=== PATIENT | female | born 1960 | race African-American/Black ===

== ENCOUNTER 2018-01-20 16:00 | Emergency (ER) | payer OTHER ==
[2018-01-20] MEDS ORDERED: cloNIDine HCl 0.1 MG TAB ONE (16:24)
[2018-01-20] MEDS ORDERED: NA CHLORIDE 0.9% 1,000 ML ONE (16:24)
[2018-01-20 16:28] LABS: Absolute Lymphocytes (CBC) 1.7 K/uL (0.7-4.9); Absolute Monocytes 0.7 K/uL (0.1-1.3); Absolute Neutrophil 4.2 K/uL (1.8-8.0); Basophils % 0.8 % (0-1.3); Eosinophils % 2.1 % (0-4.4); Hematocrit 38.9 % (36.0-45.0); Lymphocytes % 25.4 % (15.3-44.8); MCH 30.4 pg (27.0-35.0); MCV 90.9 fL (80-100); MPV 8.6 fL (7.6-11.3); Monocytes % 9.8 % (3.3-12.3); RBC Red Blood Cell Count 4.28 M/uL (3.86-4.86)
[2018-01-20 16:33] LABS: Protime INR 1.42
[2018-01-20 16:41] LABS: Potassium 3.9 mEq/L (3.6-5.0)
[2018-01-20 16:48] LABS: Albumin 3.8 g/dL (3.2-5.5); Bilirubin Direct 0.1 mg/dL (0-0.2); Bilirubin Total 0.7 mg/dL (0.3-1.2); Protein, Total 8.6 g/dL (6.0-8.3)
[2018-01-20 16:50] LABS: CKMB Creatine Kinase MB 1.3 ng/ml (0.3-4.0)
[2018-01-20 16:53] LABS: Magnesium 1.5 mg/dL (1.8-2.5)
[2018-01-20 16:57] LABS: Urine Blood NEGATIVE (NEG); Urine Glucose NEGATIVE (NEG); Urine Protein NEGATIVE (NEG); Urine Specific Gravity 1.015 (1.005-1.030); Urine pH 5.5 (5.0-7.0)
[2018-01-20] MEDS ORDERED: FUROSEMIDE 20 MG/ 2ML VIAL ONE (17:07)
[2018-01-20] MEDS ORDERED: Magnesium Sulfate 2gm IVPB 2 G/50 ML BAG IV ONE (17:07)
--- NOTE | 2018-01-20 17:16 | RAD REPORT ---
EXAM DESCRIPTION: RAD - Chest Single View - 01/20/2018 4:53 pm CLINICAL HISTORY: Chest pain. COMPARISON: 09/13/2014 FINDINGS: Portable technique limits examination quality. The lungs are grossly clear. Mild to moderate cardiomegaly. No displaced fractures. IMPRESSION: Mild to moderate cardiomegaly.
--- NOTE | 2018-01-20 18:19 | ER ---
Nurse's Notes [facility] Name: Rhonda Figueroa Age: 57 yrs Sex: Female : 1960 Arrival Date: 01/20/2018 Time: 16:03 Bed 7 Private MD: Charlie Abdalla E Diagnosis: Essential (primary) hypertension;Hypomagnesemia Presentation: 01/20 16:04 Presenting complaint: Patient states: I have been out of a couple of my BP meds for 2 la1 days and I think my BP is running high. Transition of care: patient was not received from another setting of care. Onset of symptoms was January 20, 2018. Initial Sepsis Screen: Does the patient meet any 2 criteria? No. Patient's initial sepsis screen is negative. Does the patient have a suspected source of infection? No. Patient's initial sepsis screen is negative. Care prior to arrival: None. 16:04 Method Of Arrival: Ambulatory la1 16:04 Acuity: SHANTEL 3 la1 Historical: - Allergies: 16:05 No Known Allergies; la1 - Home Meds: 16:29 carvedilol oral oral [Active]; Lisinopril Oral [Active]; Warfarin Oral [Active]; ae1 doxazosin oral oral [Active]; Hydralazine Oral [Active]; - PMHx: 16:05 Hypertension; cardiomegaly; la1 - Immunization history:: Adult Immunizations up to date. - Social history:: Smoking status: Patient uses tobacco products, smokes one-half pack cigarettes per day. Screenin:30 Abuse screen: Denies threats or abuse. Denies injuries from another. Nutritional hb screening: No deficits noted. Tuberculosis screening: No symptoms or risk factors identified. Fall Risk None identified. Assessment: 16:31 General: Appears in no apparent distress. Behavior is calm, cooperative. Pain: Denies hb pain. Neuro: Level of Consciousness is awake, alert, obeys commands, Oriented to person, place, time, situation. Cardiovascular: Capillary refill < 3 seconds Patient's skin is warm and dry. Cardiovascular: Heart tones S1 S2 present. Respiratory: Airway is patent Trachea midline Respiratory effort is even, unlabored, Respiratory pattern is regular, symmetrical, Breath sounds are clear bilaterally. GI: No signs and/or symptoms were reported involving the gastrointestinal system. : No signs and/or symptoms were reported regarding the genitourinary system. EENT: No signs and/or symptoms were reported regarding the EENT system. Derm: No signs and/or symptoms reported regarding the dermatologic system. Skin is intact, is healthy with good turgor, Skin is pink, warm \T\ dry. Musculoskeletal: No signs and/or symptoms reported regarding the musculoskeletal system. 17:30 Reassessment: Patient appears in no apparent distress at this time. Patient and/or hb family updated on plan of care and expected duration. Pain level reassessed. Patient is alert, oriented x 3, equal unlabored respirations, skin warm/dry/pink. Patient denies pain at this time. 18:29 Reassessment: Patient appears in no apparent distress at this time. Patient and/or hb family updated on plan of care and expected duration. Pain level reassessed. Patient is alert, oriented x 3, equal unlabored respirations, skin warm/dry/pink. Patient denies pain at this time. Patient states feeling better. Patient states symptoms have improved. Vital Signs: 16:05 BP 179 / 124; Pulse 56; Resp 19; Temp 98.2; Pulse Ox 97% on R/A; Weight 54.43 kg; la1 Height 5 ft. 10 in. (177.80 cm); 17:00 BP 129 / 112; Pulse 57; Resp 17; Pulse Ox 99% on R/A; hb 17:23 BP 166 / 81; Pulse 56; Resp 16; Pulse Ox 100% on R/A; hb 17:51 BP 143 / 85; Pulse 54; Resp 15; Pulse Ox 100% on R/A; Pain 0/10; hb 16:05 Body Mass Index 17.22 (54.43 kg, 177.80 cm) la1 ED Course: 16:03 Patient arrived in ED. mr 16:03 Charlie Abdalla MD is Private Physician. mr 16:04 Triage completed. la1 16:05 Arm band placed on left wrist. la1 16:14 [facility]. snw 16:14 Herber Dowell MD is Attending Physician. snw 16:26 Inserted saline lock: 22 gauge in left antecubital area, using aseptic technique. hb ,using aseptic technique. by Sarmad Blood collected. 16:30 Patient has correct armband on for positive identification. Placed in gown. Bed in low hb position. Call light in reach. Side rails up X 1. 16:51 X-ray completed. Portable x-ray completed in exam room. Patient tolerated procedure kp1 well. 16:54 XRAY Chest (1 view) In Process Unspecified. EDMS 17:01 Kathrin Dennis, RN is Primary Nurse. hb 18:18 Charlie Abdalla MD is Referral Physician. snw 18:29 No provider procedures requiring assistance completed. IV discontinued, intact, hb bleeding controlled, No redness/swelling at site. Pressure dressing applied. Administered Medications: 16:29 Drug: NS 0.9% 1000 ml Route: IV; Rate: 75 ml/hr; Site: left antecubital; hb 18:15 Follow up: Response: No adverse reaction; IV Status: Completed infusion hb 16:30 Drug: cloNIDine 0.2 mg Route: PO; hb 17:30 Follow up: Response: No adverse reaction; Blood pressure is lowered hb 17:22 Drug: Magnesium Sulfate 2 grams Route: IVPB; Infused Over: 2 hrs; Site: left hb antecubital; 18:00 Follow up: Response: No adverse reaction; IV Status: Completed infusion hb 17:22 Drug: LaSIX 20 mg Route: PO; hb 18:00 Follow up: Response: No adverse reaction hb Outcome: 18:18 Discharge ordered by . snw 18:29 Discharged to home ambulatory, with family. hb 18:29 Condition: stable 18:29 Discharge instructions given to patient, Instructed on discharge instructions, follow up and referral plans. medication usage, Demonstrated understanding of instructions, follow-up care, medications. 18:31 Patient left the ED. hb Signatures: Dispatcher [employer] EDHI Milagros Nelson, GROUND SUPPORT EQUIPMENT FITTER-C GROUND SUPPORT EQUIPMENT FITTER-Csnw Kymberly Glass Lee, RN RN la1 Kathrin Dennis, RN RN Gabino Echeverria, DLILAN RN forest1 Anupama Keene 1
--- NOTE | 2018-01-20 18:19 | EDPHYS ---
Physician Documentation [facility] Name: Rhonda Figueroa Age: 57 yrs Sex: Female : 1960 Arrival Date: 01/20/2018 Time: 16:03 Bed 7 Private MD: Charlie Abdalla E ED Physician Herber Dowell HPI: 01/20 16:42 This 57 yrs old Black Female presents to ER via Ambulatory with complaints of High snw Blood Pressure. 16:42 The patient has elevated blood pressure and discovered this at a physician's office, snw called out some of her regular HTN meds but the pharmacy did not have them ready until today. Onset: The symptoms/episode began/occurred gradually. Modifying factors: The symptoms are aggravated by lack of HTN medications. Severity of symptoms: At its worst the blood pressure was 180 mm Hg. It is unknown whether or not the patient has had similar symptoms in the past. The patient has been recently seen by a physician: the patient's primary care provider, Dr. Abdalla. Historical: - Allergies: 16:05 No Known Allergies; la1 - Home Meds: 16:29 carvedilol oral oral [Active]; Lisinopril Oral [Active]; Warfarin Oral [Active]; ae1 doxazosin oral oral [Active]; Hydralazine Oral [Active]; - PMHx: 16:05 Hypertension; cardiomegaly; la1 - Immunization history:: Adult Immunizations up to date. - Social history:: Smoking status: Patient uses tobacco products, smokes one-half pack cigarettes per day. ROS: 16:41 Constitutional: Negative for fever, chills, and weight loss, Eyes: Negative for injury, snw pain, redness, and discharge, ENT: Negative for injury, pain, and discharge, Neck: Negative for injury, pain, and swelling, Cardiovascular: Negative for chest pain, palpitations, and edema, Respiratory: Negative for shortness of breath, cough, wheezing, and pleuritic chest pain, Abdomen/GI: Negative for abdominal pain, nausea, vomiting, diarrhea, and constipation, Back: Negative for injury and pain, : Negative for injury, bleeding, discharge, and swelling, MS/Extremity: Negative for injury and deformity, Skin: Negative for injury, rash, and discoloration, Neuro: Negative for headache, weakness, numbness, tingling, and seizure, Psych: Negative for depression, anxiety, suicide ideation, homicidal ideation, and hallucinations. Exam: 16:41 Constitutional: This is a well developed, well nourished patient who is awake, alert, snw and in no acute distress. Head/Face: Normocephalic, atraumatic. Eyes: Pupils equal round and reactive to light, extra-ocular motions intact. Lids and lashes normal. Conjunctiva and sclera are non-icteric and not injected. Cornea within normal limits. Periorbital areas with no swelling, redness, or edema. ENT: Nares patent. No nasal discharge, no septal abnormalities noted. Tympanic membranes are normal and external auditory canals are clear. Oropharynx with no redness, swelling, or masses, exudates, or evidence of obstruction, uvula midline. Mucous membranes moist. Neck: Trachea midline, no thyromegaly or masses palpated, and no cervical lymphadenopathy. Supple, full range of motion without nuchal rigidity, or vertebral point tenderness. No Meningismus. Chest/axilla: Normal chest wall appearance and motion. Nontender with no deformity. No lesions are appreciated. Cardiovascular: Regular rate and rhythm with a normal S1 and S2. No gallops, murmurs, or rubs. Normal PMI, no JVD. No pulse deficits. Respiratory: Lungs have equal breath sounds bilaterally, clear to auscultation and percussion. No rales, rhonchi or wheezes noted. No increased work of breathing, no retractions or nasal flaring. Abdomen/GI: Soft, non-tender, with normal bowel sounds. No distension or tympany. No guarding or rebound. No evidence of tenderness throughout. Back: No spinal tenderness. No costovertebral tenderness. Full range of motion. Skin: Warm, dry with normal turgor. Normal color with no rashes, no lesions, and no evidence of cellulitis. MS/ Extremity: Pulses equal, no cyanosis. Neurovascular intact. Full, normal range of motion. Neuro: Awake and alert, GCS 15, oriented to person, place, time, and situation. Cranial nerves II-XII grossly intact. Motor strength 5/5 in all extremities. Sensory grossly intact. Cerebellar exam normal. Normal gait. Vital Signs: 16:05 BP 179 / 124; Pulse 56; Resp 19; Temp 98.2; Pulse Ox 97% on R/A; Weight 54.43 kg; la1 Height 5 ft. 10 in. (177.80 cm); 17:00 BP 129 / 112; Pulse 57; Resp 17; Pulse Ox 99% on R/A; hb 17:23 BP 166 / 81; Pulse 56; Resp 16; Pulse Ox 100% on R/A; hb 17:51 BP 143 / 85; Pulse 54; Resp 15; Pulse Ox 100% on R/A; Pain 0/10; hb 16:05 Body Mass Index 17.22 (54.43 kg, 177.80 cm) la1 MDM: 16:17 Patient medically screened. snw 18:19 Data reviewed: vital signs, nurses notes. Data interpreted: Pulse oximetry: on room air snw is 100 %. Interpretation: normal. Counseling: I had a detailed discussion with the patient and/or guardian regarding: the historical points, exam findings, and any diagnostic results supporting the discharge/admit diagnosis, the presence of at least one elevated blood pressure reading (>120/80) during this emergency department visit, the need for outpatient follow up, for definitive care, to return to the emergency department if symptoms worsen or persist or if there are any questions or concerns that arise at home. Special discussion: I have referred the patient to see his PCP for further evaluation of high blood pressure. Based on the history and exam findings, there is no indication for further emergent testing or inpatient evaluation. I discussed with the patient/guardian the need to see the primary care provider for further evaluation of the symptoms. 01/20 16:15 Order name: Basic Metabolic Panel; Complete Time: 16:54 snw 01/20 16:15 Order name: BNP; Complete Time: 17:03 snw 01/20 16:15 Order name: CBC with Diff; Complete Time: 16:30 snw 01/20 16:15 Order name: Ckmb; Complete Time: 16:54 snw 01/20 16:15 Order name: CPK; Complete Time: 16:54 snw 01/20 16:15 Order name: LFT's; Complete Time: 16:54 snw 01/20 16:15 Order name: Magnesium; Complete Time: 16:54 snw 01/20 16:15 Order name: PT-INR; Complete Time: 16:37 snw 01/20 16:15 Order name: Ptt, Activated; Complete Time: 16:37 snw 01/20 16:15 Order name: Troponin (emerg Dept Use Only); Complete Time: 16:48 snw 01/20 16:15 Order name: XRAY Chest (1 view); Complete Time: 17:17 snw 01/20 16:31 Order name: Urine Dipstick--Ancillary (enter results); Complete Time: 17:03 eb 01/20 16:15 Order name: EKG; Complete Time: 16:16 snw 01/20 16:15 Order name: Cardiac monitoring; Complete Time: 16:30 snw 01/20 16:15 Order name: EKG - Nurse/Tech; Complete Time: 16:30 snw 01/20 16:15 Order name: IV Saline Lock; Complete Time: 16:30 snw 01/20 16:15 Order name: Labs collected and sent; Complete Time: 16:30 snw 01/20 16:15 Order name: O2 Per Protocol; Complete Time: 16:30 snw 01/20 16:15 Order name: O2 Sat Monitoring; Complete Time: 16:30 snw 01/20 16:15 Order name: Urine Dipstick-Ancillary (obtain specimen); Complete Time: 16:30 snw 01/20 16:53 Order name: Recheck Vital Signs; Complete Time: 17:02 snw Administered Medications: 16:29 Drug: NS 0.9% 1000 ml Route: IV; Rate: 75 ml/hr; Site: left antecubital; hb 18:15 Follow up: Response: No adverse reaction; IV Status: Completed infusion hb 16:30 Drug: cloNIDine 0.2 mg Route: PO; hb 17:30 Follow up: Response: No adverse reaction; Blood pressure is lowered hb 17:22 Drug: Magnesium Sulfate 2 grams Route: IVPB; Infused Over: 2 hrs; Site: left hb antecubital; 18:00 Follow up: Response: No adverse reaction; IV Status: Completed infusion hb 17:22 Drug: LaSIX 20 mg Route: PO; hb 18:00 Follow up: Response: No adverse reaction hb Disposition: 01/20/18 18:18 Discharged to Home. Impression: Essential (primary) hypertension, Hypomagnesemia. - Condition is Stable. - Discharge Instructions: Hypertension, Hypomagnesemia, DASH Eating Plan, Managing Your High Blood Pressure. - Medication Reconciliation Form, Thank You Letter, Antibiotic Education, Prescription Opioid Use form. - Follow up: Charlie Abdalla MD; When: 5 - 6 days; Reason: Recheck today's complaints, Continuance of care, Re-evaluation by your physician. Follow up: Emergency Department; When: As needed; Reason: Worsening of condition. Addendum: 01/22/2018 09:07 Co-signature as Attending Physician, Herber Dowell MD I agree with the assessment and c shelby plan of care. Signatures: Dispatcher [employer] EDWV Herber Dowell MD MD cha Therrien, Shelly, ROVING WEIGHT GAUGER-C ROVING WEIGHT GAUGER-Csnw Zak Iyer RN RN la1 Kathrin Dennis, RN RN Gabino Echeverria RN RN ae1
[2018-01-20 18:36] VITALS: TEMP 98.2
[2018-01-20 18:38] VITALS: O2SAT 100
[2018-01-20 18:40] VITALS: BP 143/85
--- NOTE | 2018-01-21 16:09 | EKG ---
Test Date: 2018-01-20 Test Time: 16:34:16 Digital Marketing Specialist: CATARINO MEASUREMENT RESULTS: Intervals: Rate: 58 [place]: QRSD: 94 QT: 436 QTc: 428 [place]: P: [place]: QRS: 79 T: 220 INTERPRETIVE STATEMENTS: Atrial fibrillation with slow ventricular response Incomplete right bundle branch block Voltage criteria for left ventricular hypertrophy ST & Marked T wave abnormality, consider inferolateral ischemia Abnormal ECG Compared to ECG 08/26/2014 07:49:28 Incomplete right bundle-branch block now present T-wave abnormality now present Possible ischemia now present Myocardial infarct finding no longer present Prolonged QT interval no longer present Electronically Signed On 01-21-18 16:09:07 CDT by Chidi Galvin
== END 2018-01-20 18:31 | disposition home or self-care (01) ==
LOC: ER 16:00
DX: I10 Essential (primary) hypertension (principal); I51.7 Cardiomegaly; F17.210 Nicotine dependence, cigarettes, uncomplicated; Z79.01 Long term (current) use of anticoagulants
CPT/HCPCS: 36415; 71045; 80048; 80076; 81003; 82550; 82553; 83735; 83880; 84484; 85025; 85610; 85730; 93005; 96361; 96365; 99284; J1940; J3475; J7030

== ENCOUNTER 2022-03-17 11:08 | Emergency (ER) | payer OTHER ==
[2022-03-17] MEDS ORDERED: IBUPROFEN 200 MG TAB PO ONE (12:14)
--- NOTE | 2022-03-17 12:39 | RAD REPORT ---
EXAM DESCRIPTION: RAD - Elbow Right 3 View - 03/17/2022 12:28 pm CLINICAL HISTORY: PAIN COMPARISON: No comparisons FINDINGS/IMPRESSION: No acute fracture. No malalignment. No significant focal degenerative changes. Small soft tissue calcifications in the dorsal aspect of the elbow may be vascular. Opaque foreign yancy dy.
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
[2022-03-17 13:47] VITALS: BP 156/79; TEMP 98.8; O2SAT 100
== END 2022-03-17 13:34 | disposition home or self-care (01) ==
LOC: ER 11:08
DX: M70.21 Olecranon bursitis, right elbow (principal); I10 Essential (primary) hypertension; F17.210 Nicotine dependence, cigarettes, uncomplicated
CPT/HCPCS: 99283

== ENCOUNTER 2024-01-27 14:11 | Observation (INO) | payer OTHER ==
--- OUTSIDE RECORDS SUMMARY | 2024-01-27 14:14 | XMS REPORT | Continuity of Care Document ---
Author Name Unknown Address [address] th[address] Address [address] [place] [address] 1 [address] [place] [address] Care Team Providers Care Habitat Management Coordinator Name Role Phone Unavailable Unavailable Unavailable Payers Payer Name Policy Type Policy Number Effective Date Expirati on Date Source [employer] [facility] (MEDICARE REPLACEMENT HMO) [id number] 00:00:00 Encounters Start Date/Time End Date/Time Encounter Type Admission Type Attending [facility] Facility Care Department Encounter ID Source 2022-06-04 00:00:00 2022-06-04 00:00:00 Outpatient [facility] DMG [id number] [facility] 2022-04-28 00:00:00 2022-04-28 00:00:00 Outpatient DMG DMG [id number] [facility] 2022-04-27 00:00:00 2022-04-27 00:00:00 Outpatient DMG DMG [id number] [facility]
--- NOTE | 2024-01-27 14:57 | RAD REPORT ---
EXAM DESCRIPTION: RAD - Chest Single View - 01/27/2024 2:51 pm CLINICAL HISTORY: CHEST PAIN COMPARISON: Chest Single View dated 01/20/2018; CHEST SINGLE VIEW dated 08/26/2014; CHEST SINGLE VIEW dated 08/25/2014; CHEST SINGLE VIEW dated 08/13/2011 FINDINGS: Lines: None. Lungs: No evidence of edema or pneumonia. Pleural: No significant pleural effusions or pneumothorax. Cardiac: Similar moderate cardiomegaly. Mediastinum: Within normal limits. Bones: No acute fractures. Other: None IMPRESSION: No acute cardiopulmonary disease.
[2024-01-27 15:05] LABS: Absolute Eosinophils 0.1 K/uL (0-0.5); Absolute Lymphocytes (CBC) 2.2 K/uL (0.7-4.9); Absolute Monocytes 0.6 K/uL (0.1-1.3); Absolute Neutrophil 3.9 K/uL (1.8-8.0); Basophils % 0.7 % (0-1.3); Eosinophils % 1.8 % (0-4.4); Hematocrit 35.8 % (36.0-45.0); Hemoglobin 11.8 g/dL (12.0-15.0); Lymphocytes % 31.7 % (15.3-44.8); MCH 30.7 pg (27.0-35.0); MCHC 32.9 g/dL (32.0-36.0); MCV 93.2 fL (80-100); MPV 9.2 fL (7.6-11.3); Monocytes % 9.2 % (3.3-12.3); Neutrophils % 56.6 % (41.7-73.7); Nucleated Red Blood Cells % 0.1 % (0-0); Platelets 229 thou/uL (152-406); RBC Red Blood Cell Count 3.84 M/uL (3.86-4.86); Red Cell Distribution Width 14.3 % (12.1-15.2)
[2024-01-27 15:15] LABS: PT Prothrombin Time 23.5 SECONDS (9.5-12.5); PTT, Activated Partial Thromb 45.5 SECONDS (24.3-36.9); Protime INR 2.19
[2024-01-27 15:24] LABS: Albumin 3.7 g/dL (3.4-5.0); Albumin/Globulin Ratio 0.8 (1.1-1.8); Anion Gap 9.5 mEq/L (5.0-15.0); Bilirubin Direct 0.2 mg/dL (0-0.2); Bilirubin Indirect, Calculated 0.5 mg/dL (0.2-0.8); Bilirubin Total 0.7 mg/dL (0.2-1.0); Globulin 4.6 g/dL (2.3-3.5); Potassium 3.5 mEq/L (3.5-5.1); Protein, Total 8.3 g/dL (6.4-8.2); Troponin High Sensitivity 40.3 pg/mL (<58.9)
[2024-01-27 15:28] LABS: Magnesium 0.8 mg/dL (1.6-2.4)
--- NOTE | 2024-01-27 15:28 | RAD REPORT ---
EXAM DESCRIPTION: CT - Head Brain Wo Cont - 01/27/2024 3:07 pm CLINICAL HISTORY: DIZZINESS COMPARISON: HEAD BRAIN W O CONTRAST dated 08/28/2014 TECHNIQUE: All CT scans are performed using dose optimization technique as appropriate and may inclu de automated exposure control or mA/KV adjustment according to patient size. FINDINGS: No intracranial hemorrhage, hydrocephalus or extra-axial fluid collection.No areas of brai n edema or evidence of midline shift. The paranasal sinuses and mastoids are clear. The calvarium is intact. IMPRESSION: No acute intracranial abnormality.
[2024-01-27] MEDS ORDERED: Magnesium Sulfate 2gm IVPB 2 G/50 ML BAG IV ONE (15:41)
[2024-01-27] MEDS ORDERED: NA CHLORIDE 0.9% 1,000 ML ONE (15:41)
[2024-01-27 16:11] LABS: Specific Gravity 1.006 (1.005-1.030); Sqamous Epithelial <5 /HPF (None Seen); Urine Bacteria None Seen /HPF (<20); Urine Bilirubin NEGATIVE (Negative); Urine Blood Negative (Negative); Urine Clarity Turbid (Clear); Urine Color Light-Yellow (Yellow); Urine Culture Reflex Order NOT NEEDED; Urine Glucose NEGATIVE (Negative); Urine Ketones NEGATIVE (Negative); Urine Microscopic Reflex YN ORDER UMIC; Urine Nitrite NEGATIVE (Negative); Urine Protein NEGATIVE (Negative); Urine RBC <5 /HPF (None Seen); Urine Urobilinogen Normal (Normal); Urine WBC <5 /HPF (<5); Urine pH 5.5 (5.0-7.0)
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
[2024-01-27] MEDS ORDERED: HALOPERIDOL LACT 5 MG/ML INJ IM PRN (16:49)
[2024-01-27] MEDS ORDERED: FLUMAZENIL 0.1 MG/ML (5 mL VIAL) IV PRN (16:49)
[2024-01-27] MEDS ORDERED: LORazepam 2 MG/ML VIAL IV PRN (16:51)
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
[2024-01-27] MEDS: chlordiazePOXIDE HCl 25 MG CAP PO SCH (18:00)
[2024-01-27] MEDS ORDERED: ACETAMINOPHEN 500 MG TAB PO PRN (19:09)
[2024-01-27] MEDS: MAGNESIUM 50% 3 GM in NA CHLORIDE 0.9% 100 ML IV ONE (19:09)
[2024-01-27] MEDS: NA CHLORIDE 0.9% 1,000 ML IV SCH (19:33)
[2024-01-27] MEDS: FOLIC ACID 1 MG TABLET PO SCH (19:44)
[2024-01-27] MEDS: THIAMINE HCL 100 MG TABLET PO SCH (19:44)
[2024-01-27] MEDS: APIXABAN 5 MG TABLET PO SCH (19:44)
[2024-01-27] MEDS: MAGNESIUM SULFATE 1 gm IVPB 1 GM/100 ML BAG IV ONE (21:01)
[2024-01-27] MEDS: carvediloL 6.25 MG TAB PO SCH (21:16)
[2024-01-27] MEDS: lisinopriL 20 MG TAB PO SCH (21:27)
[2024-01-27] MEDS: AMLODIPINE 5 MG TAB PO SCH (21:27)
[2024-01-27 22:50] VITALS: BMI 18.6
[2024-01-28 03:45] LABS: Hematocrit 32.9 % (36.0-45.0); Hemoglobin 10.8 g/dL (12.0-15.0); MCH 30.7 pg (27.0-35.0); MCHC 32.9 g/dL (32.0-36.0); MCV 93.4 fL (80-100); Platelets 200 thou/uL (152-406); RBC Red Blood Cell Count 3.52 M/uL (3.86-4.86)
[2024-01-28 03:46] LABS: Absolute Basophils 0.1 K/uL (0-0.5); Absolute Eosinophils 0.2 K/uL (0-0.5); Absolute Lymphocytes (CBC) 2.2 K/uL (0.7-4.9); Absolute Monocytes 0.5 K/uL (0.1-1.3); Absolute Neutrophil 3.5 K/uL (1.8-8.0); Basophils % 1.1 % (0-1.3); Eosinophils % 2.5 % (0-4.4); Lymphocytes % 33.6 % (15.3-44.8); MPV 9.1 fL (7.6-11.3); Monocytes % 8.2 % (3.3-12.3); Neutrophils % 54.6 % (41.7-73.7); Red Cell Distribution Width 13.8 % (12.1-15.2)
[2024-01-28 04:02] LABS: Albumin/Globulin Ratio 0.7 (1.1-1.8); Anion Gap 7.2 mEq/L (5.0-15.0); Bilirubin Total 0.4 mg/dL (0.2-1.0); Globulin 4.3 g/dL (2.3-3.5); Magnesium 1.9 mg/dL (1.6-2.4); Phosphorus 2.2 mg/dL (2.5-4.9); Potassium 3.2 mEq/L (3.5-5.1); Protein, Total 7.3 g/dL (6.4-8.2)
[2024-01-28] MEDS: PANTOPRAZOLE 40MG TABLET PO SCH (05:57)
--- NOTE | 2024-01-28 06:05 | P.PN ---
Subjective Date of Service: 01/28/24 Chief Complaint: Symptomatic bradycardia Sinus bradycardia heart rate 52, blood pressure 141/60 No reported chest pain, patient report shortness of breath on arrival to the emergency room, patient refused COVID and flu swabs - Physical Exam General: Alert, In no apparent distress, Oriented x3, Other (thin) HEENT: Atraumatic, Normocephalic Neck: JVD not distended Respiratory: Clear to auscultation bilaterally, Normal air movement Cardiovascular: Irregular heart rate/rhythm (Bradycardic) Capillary refill: <2 Seconds Gastrointestinal: Normal bowel sounds, Soft and benign Musculoskeletal: No clubbing, No swelling Integumentary: No breakdown, No significant lesion Neurological: Normal speech, Normal strength at 5/5 x4 extr <Deepthi Elise - Last Filed: 01/28/24 06:40> Date of Service: 01/28/24 <Alissa Foster - Last Filed: 01/29/24 15:44> Review of Systems per HPI <Deepthi Elise - Last Filed: 01/28/24 06:40> Physical Examination - Vital Signs Temperature: 97.1 F Blood Pressure: 141/63 Pulse: 52 Respirations: 16 Pulse Ox (%): 91 - Studies Laboratory Data (last 24 hrs) 01/27/24 01/27/24 01/27/24 14:45 14:45 14:45 WBC 6.80 Hgb 11.8 L Hct 35.8 L Plt Count 229 PT 23.5 H INR 2.19 APTT 45.5 H Sodium 136 Potassium 3.5 BUN 18 Creatinine 1.12 H Glucose 100 Magnesium 0.8 L* Total Bilirubin 0.7 AST 17 ALT 20 Alkaline Phosphatase 88 <Deepthi Elise - Last Filed: 01/28/24 06:40> Assessment And Plan - Plan Assessment plan Symptomatic bradycardia Atrial fibrillation heart rate 43 Dizziness, Cardiology consult, telemetry, Hold beta-trae, She denies history of heart failure, she reports taking Coreg 6.25 daily, previously she saw Dr. Disla, she has not seen a lpn private duty since he passed R evaluation Signs: BP 173 / 107; Pulse 40; Resp 15; Temp 97.6(O); Pulse Ox 100% on R/A; Weight 58.97 kg; Height 5 ft. 10 in. ; Pain 0/10; EKG Rate is 46 beats/min. Rhythm is irregularly irregular, A fib. QRS interval is normal at78 msec. QT interval is normal at 512 msec. Clinical impression: Atrial Fibrillation Patient refuse COVID 19, Flu A/B and RSV swabs. Dr. Kwong notified. CT of the head no acute abnormality Hypomagnesia Replace electrolytes, trend 0.8, replaced in the ER, On admission, replace per electrolyte protocol Hypokalemia trend electrolytes replace History of tobacco use History of alcohol use CIWA protocol, educate on cessation, as needed Ativan Educated on tobacco cessation Hypertension As needed antihypertensive, hold beta-trae due to bradycardia Full code Cardiac diet DVT resume home Eliquis Disposition Home independent prior Discharge Plan: Home - Code Status/Comfort Care Code Status: Full Code Critical Care: No Time Spent Managing PTS Care (In Minutes): 35 <Deepthi Elise - Last Filed: 01/28/24 06:40> Date of Service: 01/28/24 Patient was seen and examined. Events of the last 24 hours have been noted. Spoke with with AMALIA regarding patient's clinical picture after evaluating and examining the patient independently. patient's heart rate is stable. Patient doing well on telemetry. Bradyarrhythmia seems to have resolved lower currently waiting on Cardiology and echocardiogram to be completed. I performed a substantial part of the MDM during this patient's care today. I personally made or approved the documented management plan and acknowledge its risk of complications. I agree with the findings and documentation provided in the AMALIA's notes. <Alissa Foster - Last Filed: 01/29/24 15:44>
[2024-01-28] MEDS: POTASS/SODIUM PHOSPHATE 1 PKT POWD.PACK PO SCH (07:18)
[2024-01-28] MEDS: POTASSIUM CL SA 10 MEQ TAB PO ONE (09:12)
[2024-01-28] MEDS: MULTIVITAMIN TAB PO SCH (09:13)
[2024-01-29 04:37] VITALS: BP 179/84; TEMP 97.4
[2024-01-29 07:39] LABS: Anion Gap 8.7 mEq/L (5.0-15.0); Potassium 4.7 mEq/L (3.5-5.1)
--- NOTE | 2024-01-29 08:22 | P.PN ---
Subjective Date of Service: 01/29/24 Chief Complaint: Symptomatic bradycardia Subjective: No new changes (Pt states she has extreme fatigue.) <Milagros Mas - Last Filed: 01/29/24 08:17> Date of Service: 01/31/24 <Luis Sanchez - Last Filed: 01/31/24 22:25> Review of Systems 10-point ROS is otherwise unremarkable General: Malaise, As per HPI Neurological: Other (denies dizziness this am) <Milagros Mas - Last Filed: 01/29/24 08:17> Physical Examination - Vital Signs Temperature: 97.4 F Blood Pressure: 179/84 Pulse: 56 Respirations: 16 Pulse Ox (%): 94 - Physical Exam General: Alert, In no apparent distress, Oriented x3, Cooperative, Cachectic HEENT: Atraumatic, Normocephalic Neck: 2+ carotid pulse no bruit Respiratory: Normal air movement Cardiovascular: Rubs (bradycardic) Capillary refill: <2 Seconds Gastrointestinal: Normal bowel sounds Musculoskeletal: No clubbing, No swelling Integumentary: No rashes, No breakdown Neurological: Normal speech, Normal strength at 5/5 x4 extr Lymphatics: No axilla or inguinal lymphadenopathy External genitalia: Deferred Rectal: Deferred <Milagros Mas - Last Filed: 01/29/24 08:17> Assessment And Plan - Plan Assessment plan Symptomatic bradycardia Atrial fibrillation heart rate 43 Dizziness, Cardiology consult, telemetry, She denies history of heart failure, she reports taking Coreg 6.25 daily, previously she saw Dr. Disla, she has not seen a master in chancery since he passed R evaluation Signs: BP 173 / 107; Pulse 40; Resp 15; Temp 97.6(O); Pulse Ox 100% on R/A; Weight 58.97 kg; Height 5 ft. 10 in. ; Pain 0/10; EKG Rate is 46 beats/min. Rhythm is irregularly irregular, A fib. QRS interval is normal at78 msec. QT interval is normal at 512 msec. Clinical impression: Atrial Fibrillation Patient refuse COVID 19, Flu A/B and RSV swabs. Dr. Kwong notified. CT of the head no acute abnormality 01/29/24 Hold beta-trae, remains bradycardic this am Hypomagnesia Replace electrolytes, trend -resolved 0.8, replaced in the ER, On admission, replace per electrolyte protocol 01/29/24 hypomagnesemia resolved Hypokalemia trend electrolytes replace History of tobacco use History of alcohol use CIWA protocol, educate on cessation, as needed Ativan Educated on tobacco cessation Hypertension As needed antihypertensive, hold beta-trae due to bradycardia Full code Cardiac diet DVT resume home Eliquis <Milagros Mas - Last Filed: 01/29/24 08:17> - Plan Pt seen and examined. I agree with the note by the [employer]. Hold BB due to bradycardia. Will replete magnesium and continue smoking cessation <Luis Sanchez - Last Filed: 01/31/24 22:25>
[2024-01-29 09:42] VITALS: O2SAT 94
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
--- NOTE | 2024-01-29 12:18 | P.DS ---
Admission Date: 01/27/24 Discharge Date: 01/29/24 Reason for Admission: Symptomatic bradycardia Consultations: Dr. Eugene Brief History of Present Illness: 63-year-old male female with a past medical history of hypertension, atrial fibrillation, presents to the emergency room with dizziness, lightheaded. She reports symptoms worse bending down, standing up. She reports shortness of breath that started this morning. She denies history of heart failure, she reports taking Coreg 6.25 daily, previously she saw Dr. Disla, she has not seen a steel manager since he passed. She denies chest pain, abdominal pain, fever nausea vomiting diarrhea. Plan to admit for symptomatic bradycardia, hypomagnesia. cardiology to consult, ER evaluation Signs: BP 173 / 107; Pulse 40; Resp 15; Temp 97.6(O); Pulse Ox 100% on R/A; Weight 58.97 kg; Height 5 ft. 10 in. ; Pain 0/10; EKG Rate is 46 beats/min. Rhythm is irregularly irregular, A fib. QRS interval is normal at78 msec. QT interval is normal at 512 msec. Clinical impression: Atrial Fibrillation. Laboratory evaluation hypomagnesia 0.82 mg replaced in the emergency room. 1 L of normal saline Hospital Course: Ms. Figueroa did well over the course of her hospitalization. She was severely low in magnesium on arrival. Her electrolytes have been replaced. Dr. Eugene was in to see Ms. Figueroa. He recommends a 30-day event monitor and advised her to follow-up with the clinic to get that arranged. She will be discharged on decreased doses of her medications. Lisinopril 20 mg p.o. daily, Norvasc 5 mg p.o. daily, doxazosin 1 mg p.o. twice daily, and also lower dose of Coreg at 3.125 mg p.o. twice daily. Continue Eliquis. <Milagros Mas - Last Filed: 01/29/24 12:28> Admission Date: 01/27/24 Discharge Date: 01/29/24 Hospital Course: Pt comfort nd examined. I agree with the note by the REGISTERED NURSE MATERNAL CHILD. Pt was advised to take coreg 3.125mg po BID and wear event monitor. Pt need to follow up with Dr. Eugene within 1 week <Luis Sanchez - Last Filed: 01/29/24 12:33> Disposition: ROUTINE DISCHARGE Discharge Condition: GOOD Vital Signs/Physical Exam: Temp Pulse Resp BP Pulse Ox 97.4 F 56 16 179/84 H 94 01/29/24 08:21 01/29/24 08:21 01/29/24 08:21 01/29/24 08:21 01/29/24 08:21 General: Alert, In no apparent distress, Oriented x3 HEENT: Atraumatic, Normocephalic Neck: Supple Respiratory: Normal air movement Cardiovascular: No edema, Normal pulses, Other (bradycardic 40-50s), Rubs Capillary refill: <2 Seconds Gastrointestinal: Soft and benign Musculoskeletal: No clubbing, No swelling Integumentary: No rashes Neurological: Normal speech, Normal tone Lymphatics: No axilla or inguinal lymphadenopathy External genitalia: Deferred Rectal: Deferred Laboratory Data at Discharge: WBC 6.50 thou/uL (4.3-10.9) 01/28/24 03:29 Hgb 10.8 g/dL (12.0-15.0) L D 01/28/24 03:29 Hct 32.9 % (36.0-45.0) L 01/28/24 03:29 Plt Count 200 thou/uL (152-406) 01/28/24 03:29 PT 23.5 SECONDS (9.5-12.5) H 01/27/24 14:45 INR 2.19 01/27/24 14:45 APTT 45.5 SECONDS (24.3-36.9) H 01/27/24 14:45 Sodium 137 mEq/L (136-145) 01/29/24 06:03 Potassium 4.7 mEq/L (3.5-5.1) D 01/29/24 06:03 BUN 11 mg/dL (7-18) 01/29/24 06:03 Creatinine 0.96 mg/dL (0.55-1.02) 01/29/24 06:03 Glucose 90 mg/dL (74-106) 01/29/24 06:03 Phosphorus 3.0 mg/dL (2.5-4.9) 01/29/24 06:03 Magnesium 1.9 mg/dL (1.6-2.4) 01/28/24 03:29 Total Bilirubin 0.4 mg/dL (0.2-1.0) 01/28/24 03:29 AST 18 U/L (15-37) 01/28/24 03:29 ALT 18 U/L (13-56) 01/28/24 03:29 Alkaline Phosphatase 84 U/L (45-117) 01/28/24 03:29 <Mas,Milagros Cristian - Last Filed: 01/29/24 12:28> Vital Signs/Physical Exam: Temp Pulse Resp BP Pulse Ox 97.4 F 56 16 179/84 H 94 01/29/24 08:21 01/29/24 08:21 01/29/24 08:21 01/29/24 08:21 01/29/24 08:21 Laboratory Data at Discharge: WBC 6.50 thou/uL (4.3-10.9) 01/28/24 03:29 Hgb 10.8 g/dL (12.0-15.0) L D 01/28/24 03:29 Hct 32.9 % (36.0-45.0) L 01/28/24 03:29 Plt Count 200 thou/uL (152-406) 01/28/24 03:29 PT 23.5 SECONDS (9.5-12.5) H 01/27/24 14:45 INR 2.19 01/27/24 14:45 APTT 45.5 SECONDS (24.3-36.9) H 01/27/24 14:45 Sodium 137 mEq/L (136-145) 01/29/24 06:03 Potassium 4.7 mEq/L (3.5-5.1) D 01/29/24 06:03 BUN 11 mg/dL (7-18) 01/29/24 06:03 Creatinine 0.96 mg/dL (0.55-1.02) 01/29/24 06:03 Glucose 90 mg/dL (74-106) 01/29/24 06:03 Phosphorus 3.0 mg/dL (2.5-4.9) 01/29/24 06:03 Magnesium 1.9 mg/dL (1.6-2.4) 01/28/24 03:29 Total Bilirubin 0.4 mg/dL (0.2-1.0) 01/28/24 03:29 AST 18 U/L (15-37) 01/28/24 03:29 ALT 18 U/L (13-56) 01/28/24 03:29 Alkaline Phosphatase 84 U/L (45-117) 01/28/24 03:29 <Se Sanchezchunkaden Jovita - Last Filed: 01/29/24 12:33> Diet: AHA Activity: Ad yael <Milagros Mas - Last Filed: 01/29/24 12:28> <Luis Sanchez - Last Filed: 01/29/24 12:33> Home Medications: Amlodipine [Norvasc*] 10 mg PO DAILY 01/27/24 Meloxicam 15 mg PO DAILY 01/27/24 Omeprazole [Prilosec] 40 mg PO DAILY 01/27/24 lisinopriL [Prinivil*] 40 mg PO DAILY 01/27/24 Apixaban [Eliquis] 5 mg PO BID 30 Days #60 tab 01/29/24 carvediloL [Coreg] 3.125 mg PO BID 30 Days #60 tab 01/29/24 New Medications: carvediloL [Coreg] 3.125 mg PO BID 30 Days #60 tab Apixaban [Eliquis] 5 mg PO BID 30 Days #60 tab Physician Discharge Instructions: Ms. Figueroa did well over the course of her hospitalization. She was severely low in magnesium on arrival. Her electrolytes have been replaced. Dr. Eugene was in to see Ms. Figueroa. He recommends a 30-day event monitor and advised her to follow-up with the clinic to get that arranged. She will be discharged on decreased doses of her medications. Lisinopril 20 mg p.o. daily, Norvasc 5 mg p.o. daily, doxazosin 1 mg p.o. twice daily, and also lower dose of Coreg at 3.125 mg p.o. twice daily. Continue Eliquis. Okay to DC IV and DC home Follow-up with primary care provider in 1 to 2 weeks Follow-up with cardiology in 1 to 2-week Please call the inpatient unit for any questions or concerns regarding hospital stay Return to the ER for worsening symptoms Followup: Kaur Patterson DO [Primary Care Provider] - Sanya Eugene MD [ACTIVE - CAN ADMIT] -
--- NOTE | 2024-01-29 14:43 | EKG ---
Test Date: 2024-01-27 Test Time: 14:38:05 [employer] Frame Builder: BP MEASUREMENT RESULTS: Intervals: Rate: 46 [place]: QRSD: 78 QT: 512 QTc: 448 [place]: P: [place]: QRS: 104 T: 238 INTERPRETIVE STATEMENTS: Atrial fibrillation with slow ventricular response Minimal voltage criteria for LVH, may be normal variant Anterolateral infarct, age undetermined ST & T wave abnormality, consider inferior ischemia Abnormal ECG Compared to ECG 01/20/2018 16:34:16 Myocardial infarct finding now present ST (T wave) deviation now present Incomplete right bundle-branch block no longer present T-wave abnormality no longer present Possible ischemia still present Electronically Signed On 01-29-24 14:39:07 CDT by Luis Boykin
--- NOTE | 2024-01-31 13:09 | EKG ---
Test Date: 2024-01-29 Test Time: 10:46:26 Printing Technician: DEBORAH MEASUREMENT RESULTS: Intervals: Rate: 50 [place]: QRSD: 84 QT: 460 QTc: 419 [place]: P: [place]: QRS: 89 T: 254 INTERPRETIVE STATEMENTS: Atrial fibrillation with slow ventricular response Minimal voltage criteria for LVH, may be normal variant ST & T wave abnormality, consider lateral ischemia or digitalis effect Abnormal ECG Compared to ECG 01/27/2024 14:38:05 Myocardial infarct finding no longer present ST (T wave) deviation still present Possible ischemia still present Electronically Signed On 01-31-24 13:07:53 CDT by Luis Boykin
== END 2024-01-29 13:22 | disposition home or self-care (01) ==
LOC: ER 14:11 → ERHOLD 16:39 → 2ND 18:12
PROVIDERS: ADMIT Hospitalist; ATTEND Hospitalist
DX: I48.11 Longstanding persistent atrial fibrillation (principal); I10 Essential (primary) hypertension; R06.02 Shortness of breath; E83.42 Hypomagnesemia; E87.6 Hypokalemia; F17.210 Nicotine dependence, cigarettes, uncomplicated; R42 Dizziness and giddiness; Z79.01 Long term (current) use of anticoagulants
CPT/HCPCS: 93005 ×2; 85025 ×2; 81001; 80048 ×2; 36415 ×2; 83735 ×2; 84100 ×2; 85610; 80076; 85730; 84484; 80053; 70450; 71045; 96374; 99284; J3475 ×2; J7030 ×2; G0378 ×4

== ENCOUNTER 2024-09-14 11:30 | Observation (INO) | payer OTHER ==
--- OUTSIDE RECORDS SUMMARY | 2024-09-14 11:33 | XMS REPORT | Continuity of Care Document ---
Author Name Unknown Address [address] [facility] [address] th[address] Address [address] [place] [address] [address] [place] [address] Care Team Providers Care Monorail Car Operator Name Role Phone Unavailable Unavailable Unavailable Payers Payer Name Policy Type Policy Number Effective Date Expirati on Date Source [employer] [facility] (MEDICARE REPLACEMENT HMO) [id number] 00:00:00 Encounters Start Date/Time End Date/Time Encounter Type Admission Type Attending [facility] Facility Care Department Encounter ID Source 2022-06-04 00:00:00 2022-06-04 00:00:00 Outpatient [facility] [id number] [facility] 2022-04-28 00:00:00 2022-04-28 00:00:00 Outpatient DMG DMG [id number] [facility] 2022-04-27 00:00:00 2022-04-27 00:00:00 Outpatient DMG DMG [id number] [facility]
[2024-09-14 12:18] LABS: Absolute Eosinophils 0.1 K/uL (0-0.5); Absolute Lymphocytes (CBC) 1.5 K/uL (0.7-4.9); Absolute Monocytes 0.5 K/uL (0.1-1.3); Absolute Neutrophil 2.5 K/uL (1.8-8.0); Basophils % 0.8 % (0-1.3); Eosinophils % 2.7 % (0-4.4); Hematocrit 34.6 % (36.0-45.0); Hemoglobin 11.4 g/dL (12.0-15.0); Lymphocytes % 32.1 % (15.3-44.8); MCH 30.6 pg (27.0-35.0); MCV 92.8 fL (80-100); MPV 8.8 fL (7.6-11.3); Monocytes % 11.1 % (3.3-12.3); Neutrophils % 53.3 % (41.7-73.7); Platelets 202 thou/uL (152-406); RBC Red Blood Cell Count 3.72 M/uL (3.86-4.86); Red Cell Distribution Width 13.5 % (12.1-15.2)
[2024-09-14] MEDS ORDERED: NA CHLORIDE 0.9% 500 ML ONE (12:42)
[2024-09-14] MEDS ORDERED: Magnesium Sulfate 2gm IVPB 2 G/50 ML BAG IV ONE (12:42)
[2024-09-14 12:43] LABS: Albumin 3.6 g/dL (3.4-5.0); Albumin/Globulin Ratio 0.8 (1.1-1.8); Anion Gap 6.1 mEq/L (5.0-15.0); Bilirubin Direct 0.2 mg/dL (0-0.2); Bilirubin Indirect, Calculated 0.3 mg/dL (0.2-0.8); Bilirubin Total 0.5 mg/dL (0.2-1.0); Globulin 4.5 g/dL (2.3-3.5); Potassium 4.1 mEq/L (3.5-5.1); Protein, Total 8.1 g/dL (6.4-8.2)
--- NOTE | 2024-09-14 12:55 | RAD REPORT ---
EXAM: Chest Single View HISTORY: COUGH COMPARISON: 04/12/24 FINDINGS: LUNGS/PLEURA: The lungs are clear. No pleural effusions or pneumothorax. No pulmonary edema. MEDIASTINUM: The mediastinal silhouette is within normal limits. CARDIAC: Cardiomegaly. UPPER ABDOMEN: No significant abnormality. BONES: No acute fracture. LINES/TUBES/OTHER: N/A IMPRESSION: No evidence of acute cardiopulmonary disease.
[2024-09-14 13:16] LABS: Specific Gravity 1.007 (1.005-1.030); Sqamous Epithelial <5 /HPF (None Seen); Urine Bacteria <20 /HPF (<20); Urine Bilirubin NEGATIVE (Negative); Urine Blood Negative (Negative); Urine Clarity Clear (Clear); Urine Color Colorless (Yellow); Urine Culture Reflex Order NOT NEEDED; Urine Glucose NEGATIVE (Negative); Urine Ketones NEGATIVE (Negative); Urine Micro Reflex YN NO BILL MICROSCOPIC; Urine Nitrite NEGATIVE (Negative); Urine Protein NEGATIVE (Negative); Urine RBC <5 /HPF (None Seen); Urine Urobilinogen Normal (Normal); Urine WBC <5 /HPF (<5)
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
[2024-09-14 16:10] VITALS: BMI 18.9
[2024-09-14] MEDS: SUCRALFATE 1 GM TABLET PO SCH (16:58)
[2024-09-14] MEDS: HYDRALAZINE HCL 25 MG TABLET PO SCH (20:13)
[2024-09-14] MEDS: HYDRALAZINE HCL 20 MG/ML VIAL IV PRN (20:13)
[2024-09-14] MEDS: APIXABAN 5 MG TABLET PO SCH (20:17)
[2024-09-14] MEDS: MAGNESIUM OXIDE 400 MG TAB PO SCH (20:38)
[2024-09-14 23:27] LABS: Thyroid Stimulating Hormone 5.42 uIU/mL (0.358-3.740)
[2024-09-15 05:09] VITALS: O2SAT 96
[2024-09-15 06:21] LABS: Absolute Basophils 0.1 K/uL (0-0.5); Absolute Eosinophils 0.1 K/uL (0-0.5); Absolute Lymphocytes (CBC) 1.8 K/uL (0.7-4.9); Absolute Monocytes 0.6 K/uL (0.1-1.3); Absolute Neutrophil 3.9 K/uL (1.8-8.0); Eosinophils % 1.8 % (0-4.4); Hematocrit 35.3 % (36.0-45.0); Hemoglobin 11.3 g/dL (12.0-15.0); Lymphocytes % 27.6 % (15.3-44.8); MCH 30.1 pg (27.0-35.0); MCHC 32.1 g/dL (32.0-36.0); MCV 93.8 fL (80-100); MPV 9.7 fL (7.6-11.3); Monocytes % 8.7 % (3.3-12.3); Neutrophils % 60.9 % (41.7-73.7); Platelets 192 thou/uL (152-406); RBC Red Blood Cell Count 3.76 M/uL (3.86-4.86); Red Cell Distribution Width 13.5 % (12.1-15.2)
[2024-09-15 06:41] LABS: Albumin 3.3 g/dL (3.4-5.0); Albumin/Globulin Ratio 0.7 (1.1-1.8); Anion Gap 8.2 mEq/L (5.0-15.0); Bilirubin Total 0.5 mg/dL (0.2-1.0); Globulin 4.5 g/dL (2.3-3.5); Magnesium 1.7 mg/dL (1.6-2.4); Phosphorus 2.8 mg/dL (2.5-4.9); Potassium 4.2 mEq/L (3.5-5.1); Protein, Total 7.8 g/dL (6.4-8.2)
[2024-09-15 06:42] LABS: Troponin High Sensitivity 71.2 pg/mL (<58.9)
--- NOTE | 2024-09-15 07:31 | P.DS ---
Admission Date: 09/14/24 Discharge Date: 09/15/24 Disposition: ROUTINE DISCHARGE Discharge Condition: GOOD Reason for Admission: A-fib with SVR, hypomagnesemia, elevated troponin Brief History of Present Illness: Ms. Figueroa is a 64-year-old female with a history of hypertension, A-fib on long-term anticoagulants, cardiomegaly, and recurrent hypomagnesemia. She was admitted in January 2024 with hypomagnesemia. She was placed on lisinopril, amlodipine, Coreg, and continued with apixaban. Dr. Eugene initiated an event monitor for 1 month and she has been following up with him in clinic. She presented to the emergency department today after a phone call from her PCP telling her her magnesium was quite low. She denies chest pain, syncope, weakness, nausea/vomiting. She states she can usually tell when her magnesium is low because she has pressure in her forehead. Labs in the emergency department show a sodium of 135, potassium 4.1, chloride 108, creatinine 1.38 with a GFR of 42 and a BUN of 29, magnesium 1.0, her troponin was bumped at 70 and her lipase at 98, proBNP 2173. She has some abdominal distention on exam but states that is her norm, denies pain, chest x-ray shows cardiomegaly however it is similar to her previous chest x-ray. She states meloxicam has helped with her swelling and discomfort over the last couple of months. We will admit her on telemetry for further evaluation and electrolyte replenishment with serial cardiac enzymes. Hospital Course: Ms. Figueroa did well over the course of her admission. Chronic use of PPI was the most likely cause of hypomagnesemia. We will advise her to discontinue use and give carafate and recommend H2 bloker such as pepcid for GI symptoms. An elevated troponin was noted which remained flat in serial testing, most likely secondary to renal insufficiency. Her rhythm remains rate controlled A-fib although she was having SVR with Coreg. We have increased her lisinopril, discontinued Coreg, and will give hydralazine 10 mg p.o. TID as needed for systolic blood pressure greater than 180. Ms. Figueroa should follow-up with her PCP and cardiology. She understands plan of care and will continue her other regular medications including magnesium. Vital Signs/Physical Exam: Temp Pulse Resp BP Pulse Ox 97.2 F 75 18 181/87 H 96 09/15/24 04:00 09/15/24 04:00 09/15/24 04:00 09/15/24 04:00 09/15/24 04:00 General: Alert, In no apparent distress, Oriented x3 HEENT: Atraumatic, Normocephalic Neck: Supple Respiratory: Clear to auscultation bilaterally, Normal air movement Cardiovascular: No edema, Irregular heart rate/rhythm Capillary refill: <2 Seconds Gastrointestinal: Normal bowel sounds Musculoskeletal: No clubbing Integumentary: No rashes Neurological: Normal speech, Normal tone, Normal affect Lymphatics: No axilla or inguinal lymphadenopathy External genitalia: Deferred Rectal: Deferred Laboratory Data at Discharge: WBC 6.50 thou/uL (4.3-10.9) 09/15/24 05:12 Hgb 11.3 g/dL (12.0-15.0) L 09/15/24 05:12 Hct 35.3 % (36.0-45.0) L 09/15/24 05:12 Plt Count 192 thou/uL (152-406) 09/15/24 05:12 PT 22.0 SECONDS (9.4-12.5) H 09/14/24 12:09 INR 2.00 09/14/24 12:09 Sodium 138 mEq/L (136-145) 09/15/24 05:12 Potassium 4.2 mEq/L (3.5-5.1) 09/15/24 05:12 BUN 21 mg/dL (7-18) H 09/15/24 05:12 Creatinine 1.24 mg/dL (0.55-1.02) H 09/15/24 05:12 Glucose 105 mg/dL (74-106) 09/15/24 05:12 Phosphorus 2.8 mg/dL (2.5-4.9) 09/15/24 05:12 Magnesium 1.7 mg/dL (1.6-2.4) 09/15/24 05:12 Total Bilirubin 0.5 mg/dL (0.2-1.0) 09/15/24 05:12 AST 23 U/L (15-37) 09/15/24 05:12 ALT 20 U/L (13-56) 09/15/24 05:12 Alkaline Phosphatase 85 U/L (45-117) 09/15/24 05:12 Triglycerides 42 mg/dL (<150) 09/15/24 05:12 Cholesterol 154 mg/dL (<200) 09/15/24 05:12 HDL Cholesterol 53 mg/dL (40-60) 09/15/24 05:12 Cholesterol/HDL Ratio 2.91 09/15/24 05:12 Lipase 98 U/L (13-75) H 09/14/24 12:09 Home Medications: Meloxicam 15 mg PO DAILY 01/27/24 lisinopriL [Prinivil*] 40 mg PO DAILY 01/27/24 Apixaban [Eliquis] 5 mg PO BID 30 Days #60 tab 01/29/24 Magnesium Carb,Citrate,Oxide [Magnesium Complex] 30 mg PO BID 09/14/24 Vitamin D [Drisdol*] 50,000 unit PO EVERY 7TH DAY 09/14/24 hydroCHLOROthiazide [Hydrochlorothiazide] 25 mg PO DAILY 09/14/24 Hydralazine HCl 10 mg PO TID PRN #180 tab 09/15/24 Sucralfate [Carafate*] 1 gm PO QID #180 tab 09/15/24 New Medications: Sucralfate [Carafate*] 1 gm PO QID #180 tab Hydralazine HCl 10 mg PO TID PRN #180 tab PRN Reason: Titrate To Sbp (Must Define) Physician Discharge Instructions: Ms. Figueroa did well over the course of her admission. Chronic use of PPI was the most likely cause of hypomagnesemia. We will advise her to discontinue use and give carafate and recommend H2 bloker such as pepcid for GI symptoms. An elevated troponin was noted which remained flat in serial testing, most likely secondary to renal insufficiency. Her rhythm remains rate controlled A-fib although she was having SVR with Coreg. We have increased her lisinopril, discontinued Coreg, and will give hydralazine 10 mg p.o. TID as needed for systolic blood pressure greater than 180. Ms. Figueroa should follow-up with her PCP and cardiology. She understands plan of care and will continue her other regular medications including magnesium. Diet: AHA Activity: Ad yael Followup: Yesenia,Kaur Deep, DO [Primary Care Provider] - Sanya Eugene MD [ACTIVE - CAN ADMIT] -
[2024-09-15] MEDS: MAGNESIUM SULFATE 1 gm IVPB 1 GM/100 ML BAG IV ONE (07:35)
[2024-09-15] MEDS: MELOXICAM 7.5 MG TAB PO SCH (07:36)
[2024-09-15] MEDS: AMLODIPINE 10 MG TAB PO SCH (07:37)
[2024-09-15] MEDS: lisinopriL 10 MG TAB PO SCH (07:56)
[2024-09-15] MEDS: lisinopriL 20 MG TAB PO SCH (07:56)
[2024-09-15] MEDS ORDERED: MAGNESIUM OXIDE 400 MG TAB PO SCH (09:00)
[2024-09-15] MEDS ORDERED: lisinopriL 20 MG TAB PO SCH (09:00)
[2024-09-15 10:01] VITALS: BP 191/93; TEMP 97.8
--- NOTE | 2024-09-15 11:18 | PN ---
This is a code 44 evaluation. The patient is a 64-year-old female who was admitted with hypomagnesem ia, hypertension, AFib with RVR, and elevated troponin. I reviewed the chart and discussed the case with the hospitalist team and the patient's clinical condition has markedly improved. The patient's magnesium level has been corrected. Patient's troponin has not increased and it was low to begin wit h and secondary to renal insufficiency and patient does not have RVR, currently. Her medication was adjusted for that purpose. 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 Again, the case was discussed in detail w ith the hospitalist team, and I agree with the code 44. /MODL Voice ID: [id number] Report ID: [id number]
--- NOTE | 2024-09-15 13:06 | EKG ---
Test Date: 2024-09-14 Test Time: 12:33:43 Teacher Instrumental: LUIS MEASUREMENT RESULTS: Intervals: Rate: 54 NV: QRSD: 88 QT: 468 QTc: 443 [place]: P: NV: QRS: 90 T: 258 INTERPRETIVE STATEMENTS: Atrial fibrillation with premature ventricular or aberrantly conducted complexes Voltage criteria for left ventricular hypertrophy ST & Marked T wave abnormality, consider inferolateral ischemia Abnormal ECG Compared to ECG 04/13/2024 01:21:23 Ventricular premature complex(es) now present T-wave abnormality now present Possible ischemia now present Early repolarization no longer present Electronically Signed On 09-15-24 13:04:08 SPEECH CORRECTION CONSULTANT by Sanya Eugene
== END 2024-09-15 10:29 | disposition home or self-care (01) ==
LOC: ER 11:30 → INTOOBSV 14:50 → ERHOLD 14:50 → 4TH 15:32
PROVIDERS: ADMIT Internal Medicine; ATTEND Internal Medicine
DX: I48.11 Longstanding persistent atrial fibrillation (principal); E83.42 Hypomagnesemia; I10 Essential (primary) hypertension; I51.7 Cardiomegaly; F10.939 Alcohol use, unspecified with withdrawal, unspecified; N19 Unspecified kidney failure; N28.9 Disorder of kidney and ureter, unspecified; R79.89 Other specified abnormal findings of blood chemistry; R53.1 Weakness; Z71.41 Alcohol abuse counseling and surveillance of alcoholic; Z79.01 Long term (current) use of anticoagulants
CPT/HCPCS: 96365; 93005; 85025 ×2; 81001; 80048; 36415 ×2; 83735 ×2; 82550; 84100; 84132; 85610; 84300; 80061; 80076; 84443; 84484 ×3; 84439; 83690; 80053; 83880; 83935; 71045; 99285; 96366; J3475 ×2; J0360; J7040; G0378 ×3

== ENCOUNTER 2024-11-11 11:52 | Emergency (ER) | payer OTHER ==
--- OUTSIDE RECORDS SUMMARY | 2024-11-11 11:55 | XMS REPORT | Continuity of Care Document ---
Author Name Unknown Address [address] [facility] [address] th[address] Address [address] [place] [address] 1 [address] [place] [address] Care Team Providers Care Convention Manager Name Role Phone Unavailable Unavailable Unavailable Payers Payer Name Policy Type Policy Number Effective Date Expirati on Date Source [employer] [facility] (MEDICARE REPLACEMENT HMO) [id number] 00:00:00 Encounters Start Date/Time End Date/Time Encounter Type Admission Type Attending [facility] Facility Care Department Encounter ID Source 2022-06-04 00:00:00 2022-06-04 00:00:00 Outpatient [facility] DMG [id number] [facility] 2022-04-28 00:00:00 2022-04-28 00:00:00 Outpatient DMG DMG [id number] [facility] 2022-04-27 00:00:00 2022-04-27 00:00:00 Outpatient DMG DMG [id number] [facility]
--- NOTE | 2024-11-11 13:11 | RAD REPORT ---
Exam:Finger-Thumb Right HISTORY: Right finger pain and swelling FINDINGS: No fracture or dislocation seen Several small radiopaque densities within the soft tissue adjacent to the third DIP joint. These prob ably represent foreign bodies
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
[2024-11-11 13:52] VITALS: BP 138/87; TEMP 97; O2SAT 97
== END 2024-11-11 13:49 | disposition home or self-care (01) ==
LOC: ER 11:52
DX: S61.240A Puncture wound with foreign body of right index finger without damage to nail, initial encounter (principal)
CPT/HCPCS: 99283

== ENCOUNTER 2024-12-26 16:34 | Emergency (ER) | payer OTHER ==
--- OUTSIDE RECORDS SUMMARY | 2024-12-26 16:37 | XMS REPORT | Continuity of Care Document ---
Author Name Unknown Address [address] [place] [address] [facility] Address [address] [place] [address]. [address] [place] [address] Care Team Providers Care Statistical Financial Analyst Name Role Phone Unavailable Unavailable Unavailable Payers Payer Name Policy Type Policy Number Effective Date Expirati on Date Source [facility] (MEDICARE REPLACEMENT HMO) [id number] 00:00:00 Encounters Start Date/Time End Date/Time Encounter Type Admission Type Attending [facility] Care Facility Care Department Encounter ID Source 2022-06-04 00:00:00 2022-06-04 00:00:00 Outpatient DMG DMG [id number] [facility] 2022-04-28 00:00:00 2022-04-28 00:00:00 Outpatient DMG DMG [id number] [facility] 2022-04-27 00:00:00 2022-04-27 00:00:00 Outpatient DMG DMG [id number] [facility]
--- NOTE | 2024-12-26 17:18 | RAD REPORT ---
EXAM: Chest Single View HISTORY: 64 years Female DYSPNEA COMPARISON: 09/14/2024 FINDINGS: LUNGS/PLEURA: The lungs are clear. No pleural effusions or pneumothorax. No pulmonary edema. CARDIAC/MEDIASTINUM: Moderate cardiomegaly. UPPER ABDOMEN: No significant abnormality. BONES: No acute abnormality. LINES/TUBES/OTHER: N/A IMPRESSION: No evidence of acute cardiopulmonary disease. No significant change from prior.
[2024-12-26 17:43] LABS: Hematocrit 35.7 % (36.0-45.0); Hemoglobin 12.1 g/dL (12.0-15.0); MCV 92.1 fL (80-100); RBC Red Blood Cell Count 3.88 M/uL (3.86-4.86)
[2024-12-26 17:44] LABS: Absolute Lymphocytes (CBC) 2.2 K/uL (0.7-4.9); Absolute Neutrophil 4.1 K/uL (1.8-8.0); Basophils % 0.8 % (0-1.3); Eosinophils % 1.7 % (0-4.4); Lymphocytes % 30.5 % (15.3-44.8); MCH 31.2 pg (27.0-35.0); MCHC 33.9 g/dL (32.0-36.0); MPV 9.2 fL (7.6-11.3); Monocytes % 11.3 % (3.3-12.3); Neutrophils % 55.7 % (41.7-73.7); Nucleated Red Blood Cells % 0.1 % (0-0); Platelets 226 thou/uL (152-406); Red Cell Distribution Width 13.9 % (12.1-15.2)
[2024-12-26 17:46] LABS: Absolute Basophils 0.1 K/uL (0-0.5); Absolute Eosinophils 0.1 K/uL (0-0.5); Absolute Monocytes 0.8 K/uL (0.1-1.3)
[2024-12-26 18:02] LABS: Anion Gap 9.2 mEq/L (5.0-15.0); Magnesium 1.9; Potassium 4.2 mEq/L (3.5-5.1); Troponin High Sensitivity 45.2 (<58.9)
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
[2024-12-26 19:10] VITALS: TEMP 98.3
[2024-12-26 19:16] VITALS: BP 190/86; O2SAT 100
--- NOTE | 2024-12-27 13:22 | EKG ---
Test Date: 2024-12-26 Test Time: 17:12:48 Transaction Advisory Services Manager: AFSHAN MEASUREMENT RESULTS: Intervals: Rate: 60 [place]: QRSD: 84 QT: 456 QTc: 456 [place]: P: [place]: QRS: 87 T: 258 INTERPRETIVE STATEMENTS: Atrial fibrillation Voltage criteria for left ventricular hypertrophy Cannot rule out Septal infarct, age undetermined ST & T wave abnormality, consider inferolateral ischemia Abnormal ECG Compared to ECG 09/14/2024 12:33:43 Myocardial infarct finding now present ST (T wave) deviation now present Ventricular premature complex(es) no longer present T-wave abnormality no longer present Possible ischemia still present Electronically Signed On 12-27-24 13:18:54 CDT by Sanya Eugene
== END 2024-12-26 18:46 | disposition home or self-care (01) ==
LOC: ER 16:34
DX: R53.81 Other malaise (principal); R53.83 Other fatigue; R53.1 Weakness; I10 Essential (primary) hypertension; F17.210 Nicotine dependence, cigarettes, uncomplicated
CPT/HCPCS: 36415; 71045; 80048; 83735; 83880; 84484; 85025; 93005; 99284

== ENCOUNTER 2025-05-09 12:53 | Emergency (ER) | payer OTHER ==
--- OUTSIDE RECORDS SUMMARY | 2025-05-09 12:56 | XMS REPORT | Continuity of Care Document ---
Author Name Unknown Address [address] [place] [address] [place] [address] [place] [id number] Care Team Providers Care Channel Lip Stiffener Insoles Name Role Phone Unavailable Unavailable Unavailable Payers Payer Name Policy Type Policy Number Effective Date Expirati on Date Source [facility] (MEDICARE REPLACEMENT HMO) [id number] 00:00:00
[2025-05-09] MEDS ORDERED: NA CHLORIDE 0.9% 1,000 ML ONE (13:11)
[2025-05-09 13:46] LABS: Absolute Lymphocytes (CBC) 2.0 K/uL (0.7-4.9); Hematocrit 44.2 % (36.0-45.0); Hemoglobin 14.4 g/dL (12.0-15.0); MCH 30.0 pg (27.0-35.0); MCHC 32.7 g/dL (32.0-36.0); MCV 91.7 fL (80-100); MPV 9.1 fL (7.6-11.3); Nucleated RBC Absolute Count 0.0 (0-0); Nucleated Red Blood Cells % 0.1 % (0-0); RBC Red Blood Cell Count 4.82 M/uL (3.86-4.86); White Blood Count 6.90 thou/uL (4.3-10.9)
[2025-05-09 13:56] LABS: PT Prothrombin Time 17.8 SECONDS (10-13.0); Protime INR 1.6
--- NOTE | 2025-05-09 14:08 | RAD REPORT ---
Procedure: Chest Single View HISTORY: Shortness of breath COMPARISON: December 2024 FINDINGS: The lungs appear clear of acute infiltrate. No significant pleural effusion noted. The heart is markedly enlarged. IMPRESSION: No acute abnormality is displayed.
[2025-05-09] MEDS ORDERED: hydroCHLOROthiazide 25 MG TAB ONE (15:19)
[2025-05-09 15:21] LABS: Potassium 4.6 mEq/L (3.5-5.1)
[2025-05-09 15:22] LABS: ALT/SGPT 23 U/L (13-56); AST/SGOT 27 U/L (15-37); Alkaline Phosphatase 117 U/L (45-117); BUN Blood Urea Nitrogen 42 mg/dL (7-18); Glucose Level 103 mg/dL (74-106)
[2025-05-09 15:23] LABS: Bilirubin Indirect, Calculated 0.4 mg/dL (0.2-0.8)
[2025-05-09 15:24] LABS: Anion Gap 7.6 mEq/L (5.0-15.0)
[2025-05-09 15:55] LABS: Albumin 3.6 g/dL (3.4-5.0); Albumin/Globulin Ratio 0.7 (1.1-1.8); Globulin 5.0 g/dL (2.3-3.5); Lipase 124 U/L (13-75); Magnesium 2.2; NT PRO-BNP 2034 pg/mL (<125); Thyroid Stimulating Hormone 3.010 uIU/mL (0.358-3.740); Troponin High Sensitivity 48.6 (<58.9)
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
[2025-05-09 19:47] VITALS: TEMP 97.8; O2SAT 100
[2025-05-09 19:50] VITALS: BP 139/84
== END 2025-05-09 16:45 | disposition home or self-care (01) ==
LOC: ER 12:53
DX: R53.1 Weakness (principal); I48.19 Other persistent atrial fibrillation; Z79.01 Long term (current) use of anticoagulants; I12.9 Hypertensive chronic kidney disease with stage 1 through stage 4 chronic kidney disease, or unspecified chronic kidney disease; N18.9 Chronic kidney disease, unspecified; F17.210 Nicotine dependence, cigarettes, uncomplicated
CPT/HCPCS: 93005; 85025; 80048; 36415; 83735; 85610; 80076; 84443; 84484; 83690; 83880; 71045; 96360; 99284; J7030